=== PATIENT | female | born 1980 | race Caucasian/White ===

== ENCOUNTER 2017-07-25 10:08 | Observation (INO) | payer MEDICARE, OTHER ==
[~2017-07-25] VITALS: Ht 160 cm; Wt 68.0 kg
[~2017-07-25 10:08] MED LIST: ALBU90OI6 INH; ALBU90OI61 INH; ARIP10; AZIT250 PO; BUPR75 PO; CEPH500 PO; CLIN300 PO; CODACE30 PO; LORA2 PO; LOXA10 PO; LOXA25; LOXA25 PO; LOXA5 PO; LOXAPINE; MECL25 PO; NAPR500EC PO; PROM25 PO; QUET300; RANI150; RISP1; RISP2; RXCEPH500 PO; RXLORA1 PO; RXONDA4ODT MM; SERT100; SERT50; SERT50 PO; STEVIA; SULTRIDS PO; WELLBUTRIN; ZOLOFT
[2017-07-25 10:59] LABS: BASOPHILS ABSOLUTE AUTO 0.12 K/mm3 (0.00-0.23); BASOPHILS PERCENT AUTO 1 % (0-2); EOSINOPHILS ABSOLUTE AUTO 0.22 K/mm3 (0.00-0.68); EOSINOPHILS PERCENT AUTO 2 % (0-6); Hematocrit 40.5 % (33.0-51.0); Hemoglobin 13.3 g/dL (11.5-16.0); IMMATURE GRAN ABSOLUTE AUTO 0.02 K/mm3 (0.00-0.10); IMMATURE GRAN PERCENT AUTO 0 % (0-1); LYMPHOCYTES ABSOLUTE AUTO 2.62 K/mm3 (0.84-5.20); LYMPHOCYTES PERCENT AUTO 29 % (21-46); MONOCYTES ABSOLUTE AUTO 0.82 K/mm3 (0.16-1.47); MONOCYTES PERCENT AUTO 9 % (4-13); Mean Corpuscular HGB 30.2 pg (26.0-34.0); Mean Corpuscular HGB Conc 32.8 g/dL (31.5-36.5); Mean Corpuscular Volume 92 fL (80-100); Mean Platelet Volume 9.1 fL (9.1-12.4); NEUTROPHILS ABSOLUTE AUTO 5.23 K/mm3 (1.96-9.15); NEUTROPHILS PERCENT AUTO 58 % (41-73); Platelet Count 327 K/mm3 (150-400); RDW Coefficient Variation 13.1 % (11.7-14.2); RDW Standard Deviation 44.2 fL (35.1-46.3); Red Blood Cell Count 4.41 M/mm3 (3.80-5.20); White Blood Cell Count 9.03 K/mm3 (4.00-11.30)
[2017-07-25 11:17] LABS: Ethanol (Alcohol), Blood, Med <3 mg/dL; Salicylate 3.8 mg/dL (2.8-20.0)
[2017-07-25 11:21] LABS: Acetaminophen, Random <2.0 ug/mL (10.0-30.0); Alanine Aminotransfer (ALT/SGP 19 U/L (12-78); Albumin, Blood 3.9 g/dL (3.4-5.0); Alk Phos 58 U/L (50-136); Anion Gap 8 mmol/L (6-16); Aspartate Aminotrans (AST/SGOT 17 U/L (12-37); Bilirubin, Total 0.5 mg/dL (0.1-1.0); Blood Urea Nitrogen 13 mg/dL (8-24); Bun/Creatinine Ratio 15.8 (12.0-20.0); CO2, Blood 24 mmol/L (21-32); Calcium, Blood 8.6 mg/dL (8.5-10.1); Chloride, Blood 108 mmol/L (98-108); Creatinine, Blood 0.82 mg/dL (0.40-1.00); Globulin, Blood 3.8 g/dL (2.2-4.0); Glomerular Filtration Rate >60 (60-); Glucose, Blood 82 mg/dL (70-99); Potassium, Blood 3.7 mmol/L (3.5-5.5); Sodium, Blood 140 mmol/L (136-145); Total Protein, Blood 7.7 g/dL (6.4-8.2)
== END 2017-07-26 03:09 | disposition home or self-care (01) ==
LOC: ER 10:08 → EOR 10:09
PROVIDERS: Emergency Medicine
DX: F15.129 Other stimulant abuse with intoxication, unspecified (principal); F25.1 Schizoaffective disorder, depressive type; F19.11 Other psychoactive substance abuse, in remission; F17.200 Nicotine dependence, unspecified, uncomplicated; Z88.0 Allergy status to penicillin; Z88.8 Allergy status to other drugs, medicaments and biological substances
CPT/HCPCS: 36415; 80053; 84443; 85025; 96372; 99285; G0378; G0480; J1200; J1630; J2060

== ENCOUNTER 2018-08-07 16:19 | Emergency (ER) | payer MEDICARE ==
[~2018-08-07] VITALS: Ht 160 cm; Wt 93.4 kg
[2018-08-07 17:02] LABS: Source, Urine Clean Catch
[2018-08-07 17:04] LABS: Bilirubin, Urine Neg (Neg); Blood, Urine 2+ (Neg); Glucose Qualitative, Urine Neg (Neg); Ketones, Urine 4+ (Neg); Leukocyte Esterase, Urine 1+ (Neg); Nitrite, Urine Neg (Neg); Protein, Urine 2+ (Neg); Specific Gravity, Urine 1.015 (1.003-1.022); Urobilinogen, Urine 2+ (Normal)
[2018-08-07 17:21] LABS: Appearance, Urine Hazy (Clear); Color, Urine Amber (P-Yellow)
[2018-08-07 17:22] LABS: Squamous Epithelial Cells Mod /hpf (Few)
[2018-08-07 17:23] LABS: Bacteria Rare /hpf; White Blood Cells, Urine 0-2 /hpf (0-5)
[2018-08-07 17:56] LABS: BASOPHILS ABSOLUTE AUTO 0.08 K/mm3 (0.00-0.23); BASOPHILS PERCENT AUTO 1 % (0-2); EOSINOPHILS ABSOLUTE AUTO 0.04 K/mm3 (0.00-0.68); EOSINOPHILS PERCENT AUTO 0 % (0-6); Hematocrit 33.2 % (33.0-51.0); Hemoglobin 10.7 g/dL (11.5-16.0); IMMATURE GRAN ABSOLUTE AUTO 0.06 K/mm3 (0.00-0.10); IMMATURE GRAN PERCENT AUTO 1 % (0-1); LYMPHOCYTES ABSOLUTE AUTO 1.83 K/mm3 (0.84-5.20); LYMPHOCYTES PERCENT AUTO 19 % (21-46); MONOCYTES ABSOLUTE AUTO 1.07 K/mm3 (0.16-1.47); MONOCYTES PERCENT AUTO 11 % (4-13); Mean Corpuscular HGB 29.7 pg (26.0-34.0); Mean Corpuscular HGB Conc 32.2 g/dL (31.5-36.5); Mean Corpuscular Volume 92 fL (80-100); Mean Platelet Volume 11.1 fL (9.1-12.4); NEUTROPHILS ABSOLUTE AUTO 6.81 K/mm3 (1.96-9.15); NEUTROPHILS PERCENT AUTO 69 % (41-73); Platelet Count 243 K/mm3 (150-400); RDW Coefficient Variation 13.5 % (11.7-14.2); RDW Standard Deviation 45.5 fL (35.1-46.3); White Blood Cell Count 9.89 K/mm3 (4.00-11.30)
[2018-08-07 18:13] LABS: Alanine Aminotransfer (ALT/SGP 15 U/L (12-78); Albumin, Blood 2.3 g/dL (3.4-5.0); Albumin/Globulin Ratio 0.6 (0.8-1.8); Alk Phos 158 U/L (50-136); Anion Gap 8 mmol/L (6-16); Aspartate Aminotrans (AST/SGOT 17 U/L (12-37); Bilirubin, Total 0.2 mg/dL (0.1-1.0); Blood Urea Nitrogen 7 mg/dL (8-24); Bun/Creatinine Ratio 11.2 (12.0-20.0); CO2, Blood 24 mmol/L (21-32); Chloride, Blood 105 mmol/L (98-108); Creatinine, Blood 0.62 mg/dL (0.40-1.00); Glomerular Filtration Rate >60 (60-); Glucose, Blood 81 mg/dL (70-99); Potassium, Blood 3.6 mmol/L (3.5-5.5); Sodium, Blood 137 mmol/L (136-145); Total Protein, Blood 6.3 g/dL (6.4-8.2)
[2018-08-07 19:20] LABS: U Amphetamine Screen DETECTED; U Barbituate Screen Not Detected; U Benzodiazapine Screen Not Detected; U Buprenorphine Screen Not Detected; U Cannabinoids Screen DETECTED; U Cocaine Screen Not Detected; U Methadone Screen Not Detected; U Methamphetamine Screen DETECTED; U Opiates Screen Not Detected; U Oxycodone Screen Not Detected; U Phencyclidine Screen Not Detected; U Propoxyphene Screen Not Detected
[2018-08-07] MEDS ORDERED: Verotin-Gr Cap1 EACH PO (19:21)
== END 2018-08-07 19:39 | disposition home or self-care (01) ==
LOC: ER 16:19
PROVIDERS: Emergency Medicine
DX: O99.613 Diseases of the digestive system complicating pregnancy, third trimester (principal); K21.9 Gastro-esophageal reflux disease without esophagitis; O99.343 Other mental disorders complicating pregnancy, third trimester; F32.9 Major depressive disorder, single episode, unspecified; F25.9 Schizoaffective disorder, unspecified; Z88.0 Allergy status to penicillin; Z3A.33 33 weeks gestation of pregnancy
CPT/HCPCS: 76815; 80053; 81001; 81025; 84702; 85025; 87086; 99284-25

== ENCOUNTER 2018-08-31 17:43 | Inpatient (IN) | payer MEDICARE ==
[~2018-08-31 17:43] MED LIST changes: +Verotin-Gr Cap1 EACH PO
--- NOTE | 2018-08-31 18:28 | NUR ---
PT VERY POOR HISTORIAN, SAYS, "I DONT KNOW" WHEN ASKED ABOUT HER HISTORY AND THEN SHE SEEMS TO GUESS THE ANSWER.
--- NOTE | 2018-08-31 19:16 | NUR ---
PT IS A VERY POOR HISTORIAN AND MOSTLY NON VERBAL, SHE WILL ANSWER SOME QUESTIONS, BUT STATES, "i DONT KNOW" FOR MOST OF HER HEALTH HISTORY.
--- NOTE | 2018-08-31 19:44 | NUR ---
PT ARRIVED AT 1740 VIA AMBULANCE, NB IN EMS ARMS, VIABLE FEMALE TO [facility] WITH RADHA GUERRERO RN. PT TO ROOM 117, VSS, FUNDAL CHECK DONE, FF, LIGHT LOCHIA, PT SOOTHING HERSELF BY SUCKING ON PT'S OWN BREASTS. COMPLAINS THAT BREASTS ARE SORE, INSTRUCTED PT TO STOP SUCKING ON BREASTS. CLEANED UP, PT NON VERBAL, OCCASIONALLY MAKES SENSE. STATES THE THE "STATE HAS MY KIDS" BP CUFF ON, THEN ROLLED TO SIDE RESTING. PADS AND UNDERWEAR ON. YANELIS PACE RN ASSUMED CARE.
--- NOTE | 2018-08-31 20:00 | NUR ---
PATIENT SLEEPING AND DIFFICULT TO AROUSE. RR 18. TALKED TO SIG. OTHER AND ASKED HIM TO CALL WHEN SHE WOKE TO COMPLETE SHIFT ASSESSMENT.
--- NOTE | 2018-08-31 21:00 | NUR ---
PATIENT UNAROUSABLE TOOK VITAL SIGNS WHILE PATIENT WAS SLEEPING. ATTEMPTED TO AROUSE MULTIPLE TIMES. PATIENT DID GROAN ONCE IN RESPONSE AND STIRRED. WILL CONTINUE TO MONITOR PATIENT AND OBTAIN FULL ASSESSMENT WHEN PATIENT WAKES.
--- NOTE | 2018-08-31 23:00 | NUR ---
PATIENT REFUSES ASSESSMENT EXPLAINED TO PATIENT THAT I NEEDED TO ASSESS HER AND CHECK BLEEDING, PATIENT GROGGY AND MINIMALLY RESPONSIVE, ATTEMPTED TO RUB FUNDUS AND CHECK BLEEDING, PATIENT PUSHED AWAY AND REFUSED ASSESSMENT. VITALS ARE STABLE. LINENS, GOWN, AND UNDERGARMENTS ARE FREE FROM BLOOD. UNABLE TO ASSESS PAD FOR BLEEDING.
[2018-09-01 05:58] LABS: BASOPHILS ABSOLUTE AUTO 0.08 K/mm3 (0.00-0.23); BASOPHILS PERCENT AUTO 1 % (0-2); EOSINOPHILS ABSOLUTE AUTO 0.05 K/mm3 (0.00-0.68); EOSINOPHILS ABSOLUTE AUTO 0.08 K/mm3 (0.00-0.68); EOSINOPHILS PERCENT AUTO 1 % (0-6); Hematocrit 34.3 % (33.0-51.0); Hematocrit 35.2 % (33.0-51.0); Hemoglobin 11.1 g/dL (11.5-16.0); Hemoglobin 11.2 g/dL (11.5-16.0); IMMATURE GRAN ABSOLUTE AUTO 0.05 K/mm3 (0.00-0.10); IMMATURE GRAN ABSOLUTE AUTO 0.06 K/mm3 (0.00-0.10); IMMATURE GRAN PERCENT AUTO 1 % (0-1); LYMPHOCYTES ABSOLUTE AUTO 2.41 K/mm3 (0.84-5.20); LYMPHOCYTES ABSOLUTE AUTO 2.52 K/mm3 (0.84-5.20); LYMPHOCYTES PERCENT AUTO 23 % (21-46); LYMPHOCYTES PERCENT AUTO 24 % (21-46); MONOCYTES ABSOLUTE AUTO 0.96 K/mm3 (0.16-1.47); MONOCYTES ABSOLUTE AUTO 0.98 K/mm3 (0.16-1.47); MONOCYTES PERCENT AUTO 9 % (4-13); Mean Corpuscular HGB 28.9 pg (26.0-34.0); Mean Corpuscular HGB 29.4 pg (26.0-34.0); Mean Corpuscular HGB Conc 31.5 g/dL (31.5-36.5); Mean Corpuscular HGB Conc 32.7 g/dL (31.5-36.5); Mean Corpuscular Volume 90 fL (80-100); Mean Corpuscular Volume 92 fL (80-100); Mean Platelet Volume 10.8 fL (9.1-12.4); NEUTROPHILS ABSOLUTE AUTO 6.91 K/mm3 (1.96-9.15); NEUTROPHILS ABSOLUTE AUTO 6.99 K/mm3 (1.96-9.15); NEUTROPHILS PERCENT AUTO 65 % (41-73); NEUTROPHILS PERCENT AUTO 66 % (41-73); Platelet Count 241 K/mm3 (150-400); Platelet Count 245 K/mm3 (150-400); RDW Coefficient Variation 13.8 % (11.7-14.2); RDW Coefficient Variation 13.9 % (11.7-14.2); RDW Standard Deviation 45.1 fL (35.1-46.3); RDW Standard Deviation 46.6 fL (35.1-46.3); Red Blood Cell Count 3.81 M/mm3 (3.80-5.20); Red Blood Cell Count 3.84 M/mm3 (3.80-5.20); White Blood Cell Count 10.48 K/mm3 (4.00-11.30); White Blood Cell Count 10.71 K/mm3 (4.00-11.30)
--- NOTE | 2018-09-01 07:52 | NUR ---
PT CURLED UP TIGHT IN BED WITH BLANKETS OVER HER HEAD, SHAKING HER HEAD NO WHEN ASKED IF SHE WAS IN PAIN. SHE REFUSED A FUNDAL CHECK. WHEN ASKED HOW HER BLEEDING WAS, SHE JUST SHOOK HER HEAD NO. OFFERED PT A SHOWER AND SHE REFUSED AT THIS TIME. SHE IS MOSTLY NON VERBAL. I ASKED HER IF SHE HAD A NAME FOR HER BABY YET AND SHE SHOOK HER HEAD NO. HER SIGNIFICANT OTHER WAS IN THE ROOM ALSO AND HE SAID THEY HAVEN'T DECIDED ON A NAME. I REMINDED THEM THAT THEY CAN VISIT BABY IN [facility] AND MAYBE AFTER SEEING HER, THEY COULD THINK OF A NAME. THEY DIDN'T RESPOND TO MY SUGGESTION AND DON'T WANT TO GO TO THE [facility] AT THIS TIME. THIS MOTHER DOESNT SEEM TO HAVE ANY INTEREST IN HER BABY AT THIS TIME AND NEITHER HER OR THE FOB HAS ASKED ABOUT THE BABY'S CONDITION.
--- NOTE | 2018-09-01 14:16 | NUR ---
CSD HERE AT 1100 TO TALK WITH PARENTS. PAPERWORK COMPLETED WITH COOPERATION FROM PARENTS. I THEN INVITED PARENTS INTO THE NURSERY TO SEE , THEY WERE APPROPRIATE TOWARDS BABY, SHOWING AFECTION, TOUCHING BABY GENTLY, AND TALKING TO BABY. ONCE BACK IN THE ROOM, THE PARENTS DECIDED ON A NAME FOR , PRIYANKA MONZON. MOM THEN SHOWERED AND DISCHARGE TEACHING DONE. SIGNED DISCHARGE PAPERWORK AND WALKED OUT WITH NURSE AT 1415
== END 2018-09-01 14:10 | disposition home or self-care (01) | DRG 776 ==
LOC: OBS 17:43 → BC 17:46
PROVIDERS: ADMIT Obstetrics & Gynecology
DX: Z39.0 Encounter for care and examination of mother immediately after delivery (principal); F33.3 Major depressive disorder, recurrent, severe with psychotic symptoms; O99.345 Other mental disorders complicating the puerperium; F60.3 Borderline personality disorder
CPT/HCPCS: 36415; 85025; 86317; 86592; 86762; 86850; 86900; 86901; 90707